=== PATIENT | male | born 1970 | race Caucasian/White ===

== ENCOUNTER 2017-09-04 08:51 | Emergency (ER) | payer BC, OTHER ==
[~2017-09-04] VITALS: Ht 162.6 cm; Wt 68.0 kg
[2017-09-04 10:11] LABS: Basophils # (auto) 0.1 uL; Basophils % (auto) 1.1 % (0.0-2.0); Eosinophils # (auto) 0.1 uL; Eosinophils % (auto) 1.2 % (0.0-7.0); Hemoglobin 14.6 g/dL (13.5-17.5); Lymphocytes # (auto) 0.9 uL; Lymphocytes % (auto) 11.6 % (10.0-50.0); Mean Corpuscular Hemoglobin 33.7 pg (28.0-32.0); Monocytes # (auto) 0.6 uL; Monocytes % (auto) 7.4 % (0.0-12.0); Neutrophils # (auto) 5.9 uL; Neutrophils % (auto) 78.7 % (37.0-80.0); Platelet Count (auto) 144 10^3/uL (140-450); Red Blood Cells 4.35 10^6/uL (4.5-5.90); Red Cell Distribution Width 14.2 % (11.8-14.3); White Blood Cell 7.5 10^3/uL (4.4-10.8)
[2017-09-04 10:43] LABS: Calcium 8.5 mg/dL (8.5-10.1)
[2017-09-04 10:47] LABS: Albumin 2.9 g/dL (3.4-5.0); BUN/Creatinine Ratio 16.8
[2017-09-04 10:49] LABS: Bilirubin, Total 0.5 mg/dL (0.2-1.0); Total Protein 7.4 g/dL (6.4-8.2)
[2017-09-04] MEDS ORDERED: TAMSULOSIN HYDROCHLORIDE 0.4 MG CAP PO ONE (12:30)
[2017-09-04] MEDS ORDERED: LIDOCAINE 2% JELLY 11ml (GLYDO) UR ONE (13:15)
[2017-09-04] MEDS ORDERED: LIDOCAINE 2% JELLY 11ml (GLYDO) ONE (13:16)
[2017-09-04 14:16] VITALS: BP 125/89
[2017-09-04 14:18] LABS: Urine Bacteria NONE SEEN /hpf (None Seen); Urine Blood 2+ /uL (Negative); Urine Specific Gravity 1.006 (1.001-1.035); Urine WBC 1 /hpf (0 - 3)
== END 2017-09-04 15:22 | disposition home or self-care (01) ==
LOC: EDBD 08:51 → ER 08:54
DX: R55 Syncope and collapse (principal); Q90.9 Down syndrome, unspecified; E11.9 Type 2 diabetes mellitus without complications; E44.0 Moderate protein-calorie malnutrition; N40.1 Benign prostatic hyperplasia with lower urinary tract symptoms; E03.9 Hypothyroidism, unspecified; Z68.25 Body mass index [BMI] 25.0-25.9, adult
CPT/HCPCS: 36415; 51702; 70450; 71046; 80053; 81001; 82962; 83036; 83735; 84443; 85025; 93005

== ENCOUNTER 2017-09-12 13:30 | Emergency (ER) | payer BC ==
[~2017-09-12] VITALS: Ht 165.1 cm; Wt 74.8 kg
[2017-09-12] MEDS ORDERED: SODIUM CHLORIDE 0.9% 500 ML IVB ONE (13:57)
[2017-09-12] MEDS ORDERED: KETOROLAC TROMETH 30 MG/ML 1ML VIAL IV ONE (14:00)
[2017-09-12 14:40] LABS: Basophils # (auto) 0.1 uL; Basophils % (auto) 0.6 % (0.0-2.0); Eosinophils # (auto) 0 uL; Eosinophils % (auto) 0.3 % (0.0-7.0); Hematocrit 43.7 % (41.0-53.0); Hemoglobin 14.8 g/dL (13.5-17.5); Lymphocytes # (auto) 0.6 uL; Lymphocytes % (auto) 6.1 % (10.0-50.0); Mean Corpuscular Hemoglobin 33.6 pg (28.0-32.0); Mean Corpuscular Volume 98.7 fL (80.0-100.0); Monocytes # (auto) 1.1 uL; Monocytes % (auto) 10.5 % (0.0-12.0); Neutrophils # (auto) 8.7 uL; Neutrophils % (auto) 82.5 % (37.0-80.0); Platelet Count (auto) 187 10^3/uL (140-450); Red Blood Cells 4.42 10^6/uL (4.5-5.90); Red Cell Distribution Width 13.7 % (11.8-14.3); White Blood Cell 10.6 10^3/uL (4.4-10.8)
[2017-09-12 14:49] LABS: Albumin 2.8 g/dL (3.4-5.0); BUN/Creatinine Ratio 17.2; Calcium 8.5 mg/dL (8.5-10.1); Potassium 3.9 mmol/L (3.5-5.1)
[2017-09-12 14:52] LABS: Bilirubin, Total 0.6 mg/dL (0.2-1.0); Total Protein 8.1 g/dL (6.4-8.2)
[2017-09-12 15:37] LABS: Urine Bacteria NONE SEEN /hpf (None Seen); Urine Blood Negative /uL (Negative); Urine Mucus FEW (None Seen); Urine Specific Gravity 1.026 (1.001-1.035); Urine WBC 3 /hpf (0 - 3)
[2017-09-12 16:07] VITALS: BP 111/68
== END 2017-09-12 17:06 | disposition home or self-care (01) ==
LOC: ER 13:30 → EDSEX 13:30 → EDBD 13:30 → ER 17:06
DX: R07.89 Other chest pain (principal); M79.604 Pain in right leg; E78.5 Hyperlipidemia, unspecified
CPT/HCPCS: 36415; 74176; 80053; 81001; 81002; 82150; 83690; 85025; 96374; 99285; J1885; J7040; 93005